=== PATIENT | male | born 1950 | race Caucasian/White ===

== ENCOUNTER → 2022-06-18 | Outpatient (CLI) | payer BC, MEDICARE ==
[~2022-06-18] MED LIST: ALFU10TA3 PO; ATOR1TAB21 PO; CYCL-707 PO; DILT180C28 PO; ELIQ2.5T PO; FOLI1TAB11 PO; FURO40TA2 PO; GABA-283 PO; MORP-69 PO; PRED5TA PO
[2022-06-18 12:51] LABS: BASO % 0.3 % (0.0-1.0); EOS # 0.1 10^3/uL (0.0-0.5); EOS % 1.5 % (0.0-3.0); HEMATOCRIT 37.9 % (42.0-52.0); HEMOGLOBIN 12.2 g/dl (13.5-17.5); LYMPH # 0.4 10^3/uL (1.5-5.0); LYMPH % 5.8 % (24.0-44.0); MEAN CORPUSCULAR HEMOGLOBIN 29.6 pg (27.0-33.0); MEAN CORPUSCULAR HGB CONC 32.2 g/dl (32.0-36.5); MONO # 0.5 10^3/uL (0.0-0.8); MONO % 6.2 % (2.0-8.0); NEUTROPHILS # 6.4 10^3/uL (1.5-8.5); NEUTROPHILS % 85.5 % (36.0-66.0); PLATELET COUNT, AUTOMATED 224 10^3/uL (150-450); RED BLOOD COUNT 4.12 10^6/uL (4.30-6.10); WHITE BLOOD COUNT 7.5 10^3/uL (4.0-10.0)
[2022-06-18 14:14] LABS: ALBUMIN 3.4 G/DL (3.2-5.2); ALKALINE PHOSPHATASE 247 U/L (46-116); ALT/SGPT 17 U/L (7.0-40); AST/SGOT 14 U/L (<34); BILIRUBIN,TOTAL 0.9 MG/DL (0.3-1.2); BLOOD UREA NITROGEN 11 MG/DL (9-23); CALCIUM LEVEL 9.4 MG/DL (8.3-10.6); CARBON DIOXIDE LEVEL 27 MMOL/L (20-31); CHLORIDE LEVEL 98 MMOL/L (98-107); GLOMERULAR FILTRATION RATE > 60.0 (>49); GLUCOSE, FASTING 279 MG/DL (74-106); POTASSIUM SERUM 3.9 MMOL/L (3.5-5.1); PROSTATIC SPECIFIC AG MONITOR 0.97 NG/ML (< 4.00); SODIUM LEVEL 136 MMOL/L (136-145); TOTAL PROTEIN 6.4 G/DL (5.7-8.2)
== END ==
LOC: M ONCR 11:07
PROVIDERS: ATTEND General Practice
DX: C61 Malignant neoplasm of prostate (principal); C79.51 Secondary malignant neoplasm of bone; E11.9 Type 2 diabetes mellitus without complications; I10 Essential (primary) hypertension; Z57.8 Occupational exposure to other risk factors; Z77.090 Contact with and (suspected) exposure to asbestos; Z79.01 Long term (current) use of anticoagulants; Z79.52 Long term (current) use of systemic steroids; Z79.891 Long term (current) use of opiate analgesic; Z79.899 Other long term (current) drug therapy; Z80.3 Family history of malignant neoplasm of breast
CPT/HCPCS: 36415; 80053; 84153; 85025; G0463

== ENCOUNTER → 2022-07-24 | Outpatient (CLI) | payer BC, MEDICARE ==
[~2022-07-24] VITALS: Ht 177.8 cm; Wt 123.0 kg
[~2022-07-24] MED LIST changes: +XOFIGO(RADIUM-223 DICHLORIDE) 180UCI 6ML VL CHARGE IS PER UCI IV STA
[2022-07-24 10:25] VITALS: BP 134/81
[2022-07-24 11:59] LABS: BASO % 0.4 % (0.0-1.0); EOS # 0.2 10^3/uL (0.0-0.5); EOS % 2.2 % (0.0-3.0); HEMATOCRIT 38.2 % (42.0-52.0); HEMOGLOBIN 12.3 g/dl (13.5-17.5); LYMPH # 0.5 10^3/uL (1.5-5.0); LYMPH % 6.7 % (24.0-44.0); MEAN CORPUSCULAR HEMOGLOBIN 29.4 pg (27.0-33.0); MEAN CORPUSCULAR HGB CONC 32.2 g/dl (32.0-36.5); MEAN CORPUSCULAR VOLUME 91.2 fl (80.0-96.0); MONO # 0.6 10^3/uL (0.0-0.8); MONO % 8.4 % (2.0-8.0); NEUTROPHILS # 5.9 10^3/uL (1.5-8.5); NEUTROPHILS % 81.9 % (36.0-66.0); PLATELET COUNT, AUTOMATED 194 10^3/uL (150-450); RED BLOOD COUNT 4.19 10^6/uL (4.30-6.10); WHITE BLOOD COUNT 7.2 10^3/uL (4.0-10.0)
[2022-07-24 12:54] LABS: ALBUMIN 3.4 G/DL (3.2-5.2); ALKALINE PHOSPHATASE 246 U/L (46-116); ALT/SGPT 18 U/L (7.0-40); AST/SGOT 8 U/L (<34); BILIRUBIN,TOTAL 0.4 MG/DL (0.3-1.2); BLOOD UREA NITROGEN 15 MG/DL (9-23); CALCIUM LEVEL 8.6 MG/DL (8.3-10.6); CARBON DIOXIDE LEVEL 29 MMOL/L (20-31); CHLORIDE LEVEL 96 MMOL/L (98-107); CREATININE FOR GFR 0.68 MG/DL (0.70-1.30); GLOMERULAR FILTRATION RATE > 60.0 (>49); GLUCOSE, FASTING 428 MG/DL (74-106); POTASSIUM SERUM 3.4 MMOL/L (3.5-5.1); SODIUM LEVEL 137 MMOL/L (136-145); TOTAL PROTEIN 5.9 G/DL (5.7-8.2)
== END ==
LOC: M ONCR 09:50
PROVIDERS: ATTEND General Practice
DX: C61 Malignant neoplasm of prostate (principal); C79.51 Secondary malignant neoplasm of bone

== ENCOUNTER → 2022-08-21 | Outpatient (CLI) | payer BC, MEDICARE ==
[~2022-08-21] VITALS: Ht 177.8 cm; Wt 274.2 kg
[2022-08-21 09:58] VITALS: BP 170/92
== END ==
LOC: M ONCR 09:48
PROVIDERS: ATTEND General Practice
DX: C61 Malignant neoplasm of prostate (principal); C79.51 Secondary malignant neoplasm of bone; Z99.89 Dependence on other enabling machines and devices
CPT/HCPCS: 79101; 96402; G0463

== ENCOUNTER → 2022-09-18 | Outpatient (CLI) | payer BC, MEDICARE ==
[~2022-09-18] VITALS: Ht 175.3 cm; Wt 115.9 kg
[2022-09-18 11:49] VITALS: BP 121/82
== END ==
LOC: M ONCR 10:30
PROVIDERS: ATTEND General Practice
DX: C61 Malignant neoplasm of prostate (principal); C79.51 Secondary malignant neoplasm of bone
CPT/HCPCS: 79101; 96402; G0463

== ENCOUNTER → 2022-10-16 | Outpatient (CLI) | payer BC, MEDICARE ==
[~2022-10-16] VITALS: Ht 177.8 cm; Wt 119.6 kg
[2022-10-16 10:39] VITALS: BP 144/89; O2SAT 98
== END ==
LOC: M ONCR 10:07
PROVIDERS: ATTEND General Practice
DX: C61 Malignant neoplasm of prostate (principal); Z79.51 Long term (current) use of inhaled steroids
CPT/HCPCS: 79101; G0463

== ENCOUNTER → 2022-11-27 | Outpatient (CLI) | payer BC, MEDICARE ==
[~2022-11-27] MED LIST changes: -GABA-283 PO; +GABA-284 PO
== END ==
LOC: M ONCR 12:50
PROVIDERS: ATTEND General Practice
DX: C61 Malignant neoplasm of prostate (principal); C79.51 Secondary malignant neoplasm of bone; K59.00 Constipation, unspecified
CPT/HCPCS: 79101; G0463

== ENCOUNTER → 2023-01-01 | Outpatient (CLI) | payer MEDICARE, BC ==
[~2023-01-01] VITALS: Ht 177.8 cm; Wt 119.6 kg
[2023-01-01 10:59] LABS: BASO % 0.4 % (0.0-1.0); EOS # 0.2 10^3/uL (0.0-0.5); EOS % 3.8 % (0.0-3.0); HEMATOCRIT 38.6 % (42.0-52.0); HEMOGLOBIN 12.3 g/dl (13.5-17.5); LYMPH # 0.5 10^3/uL (1.5-5.0); LYMPH % 9.3 % (24.0-44.0); MEAN CORPUSCULAR HEMOGLOBIN 28.8 pg (27.0-33.0); MEAN CORPUSCULAR HGB CONC 31.9 g/dl (32.0-36.5); MEAN CORPUSCULAR VOLUME 90.4 fl (80.0-96.0); MONO # 0.7 10^3/uL (0.0-0.8); MONO % 12.3 % (2.0-8.0); NEUTROPHILS # 4.1 10^3/uL (1.5-8.5); NEUTROPHILS % 73.5 % (36.0-66.0); PLATELET COUNT, AUTOMATED 178 10^3/uL (150-450); RED BLOOD COUNT 4.27 10^6/uL (4.30-6.10); WHITE BLOOD COUNT 5.6 10^3/uL (4.0-10.0)
== END ==
LOC: M ONCR 10:26
PROVIDERS: ATTEND General Practice
DX: C61 Malignant neoplasm of prostate (principal); C79.51 Secondary malignant neoplasm of bone
CPT/HCPCS: 36415; 79101; 85025; A9606; G0463

== ENCOUNTER → 2023-04-09 | Outpatient (CLI) | payer BC, MEDICARE ==
[~2023-04-09] MED LIST changes: -XOFIGO(RADIUM-223 DICHLORIDE) 180UCI 6ML VL CHARGE IS PER UCI IV STA
== END ==
LOC: M ONCR 09:52
PROVIDERS: ATTEND General Practice
DX: C61 Malignant neoplasm of prostate (principal); C79.51 Secondary malignant neoplasm of bone; Z71.2 Person consulting for explanation of examination or test findings; Z77.021 Contact with and (suspected) exposure to benzene; Z77.090 Contact with and (suspected) exposure to asbestos; Z88.5 Allergy status to narcotic agent; Z79.01 Long term (current) use of anticoagulants; Z79.52 Long term (current) use of systemic steroids; Z79.891 Long term (current) use of opiate analgesic; Z79.899 Other long term (current) drug therapy; Z92.3 Personal history of irradiation

== ENCOUNTER → 2023-05-21 | Outpatient (CLI) | payer BC, MEDICARE ==
[~2023-05-21] VITALS: Ht 172.7 cm; Wt 121.0 kg
[2023-05-21 10:33] VITALS: BP 144/76; TEMP 97.9; O2SAT 94
[2023-05-21] MEDS: PLUVICTO (LU-177 VIPIVOTIDE TETRAXETAN) 27 MCI/ML VL (CHARGE IS PER MCI) IV STA (10:36)
== END ==
LOC: M ONCR 09:54
PROVIDERS: ATTEND General Practice
DX: C61 Malignant neoplasm of prostate (principal); C79.51 Secondary malignant neoplasm of bone

== ENCOUNTER → 2023-07-02 | Outpatient (CLI) | payer BC, MEDICARE ==
[2023-07-02] MEDS: PLUVICTO (LU-177 VIPIVOTIDE TETRAXETAN) 27 MCI/ML VL (CHARGE IS PER MCI) IV STA (10:53)
== END ==
LOC: M ONCR 09:48
PROVIDERS: ATTEND General Practice
DX: C61 Malignant neoplasm of prostate (principal); C79.51 Secondary malignant neoplasm of bone
CPT/HCPCS: 79101; G0463

== ENCOUNTER → 2023-08-13 | Outpatient (CLI) | payer BC, MEDICARE ==
[2023-08-13] MEDS: PLUVICTO (LU-177 VIPIVOTIDE TETRAXETAN) 27 MCI/ML VL (CHARGE IS PER MCI) IV STA (10:36)
== END ==
LOC: M ONCR 09:53
PROVIDERS: ATTEND General Practice
DX: C61 Malignant neoplasm of prostate (principal); C79.51 Secondary malignant neoplasm of bone
CPT/HCPCS: 79101; G0463

== ENCOUNTER → 2023-09-24 | Outpatient (CLI) | payer BC, MEDICARE ==
[2023-09-24] MEDS: PLUVICTO (LU-177 VIPIVOTIDE TETRAXETAN) 27 MCI/ML VL (CHARGE IS PER MCI) IV STA (10:20)
== END ==
LOC: M ONCR 09:40
PROVIDERS: ATTEND General Practice
DX: C61 Malignant neoplasm of prostate (principal); C79.51 Secondary malignant neoplasm of bone
CPT/HCPCS: 79101; G0463

== ENCOUNTER → 2023-11-05 | Outpatient (CLI) | payer BC, MEDICARE ==
[~2023-11-05] MED LIST changes: +ALFU10TA23 PO; -ALFU10TA3 PO; +PLUVICTO (LU-177 VIPIVOTIDE TETRAXETAN) 27 MCI/ML VL (CHARGE IS PER MCI) IV ONE
[2023-11-05] MEDS: PLUVICTO (LU-177 VIPIVOTIDE TETRAXETAN) 27 MCI/ML VL (CHARGE IS PER MCI) IV STA (11:38)
== END ==
LOC: M ONCR 11:10
PROVIDERS: ATTEND General Practice
DX: C61 Malignant neoplasm of prostate (principal); C79.51 Secondary malignant neoplasm of bone
CPT/HCPCS: 79101; G0463

== ENCOUNTER → 2023-12-17 | Outpatient (CLI) | payer BC, MEDICARE ==
[~2023-12-17] MED LIST changes: -PLUVICTO (LU-177 VIPIVOTIDE TETRAXETAN) 27 MCI/ML VL (CHARGE IS PER MCI) IV ONE
[2023-12-17] MEDS: PLUVICTO (LU-177 VIPIVOTIDE TETRAXETAN) 27 MCI/ML VL (CHARGE IS PER MCI) IV STA (10:52)
== END ==
LOC: M ONCR 09:52
PROVIDERS: ATTEND General Practice
DX: C61 Malignant neoplasm of prostate (principal); C79.51 Secondary malignant neoplasm of bone; Z92.3 Personal history of irradiation
CPT/HCPCS: 79101; G0463

== ENCOUNTER → 2024-03-29 | Outpatient (CLI) | payer BC, MEDICARE ==
[~2024-03-29] MED LIST changes: +BACTDSTA PO
== END ==
LOC: M ONCR 14:24
PROVIDERS: ATTEND General Practice
DX: C61 Malignant neoplasm of prostate (principal); C79.51 Secondary malignant neoplasm of bone; L03.116 Cellulitis of left lower limb; M25.552 Pain in left hip; M54.59 Other low back pain; D64.9 Anemia, unspecified; Z92.3 Personal history of irradiation; Z77.021 Contact with and (suspected) exposure to benzene; Z77.090 Contact with and (suspected) exposure to asbestos; Z88.5 Allergy status to narcotic agent; Z79.01 Long term (current) use of anticoagulants; Z79.899 Other long term (current) drug therapy; Z79.52 Long term (current) use of systemic steroids

== ENCOUNTER → 2024-07-15 | Outpatient (CLI) | payer BC, MEDICARE | LOC: M ONCR 14:57 | PROVIDERS: ATTEND General Practice | DX: C61 Malignant neoplasm of prostate (principal); C79.51 Secondary malignant neoplasm of bone; R97.21 Rising PSA following treatment for malignant neoplasm of prostate; Z77.021 Contact with and (suspected) exposure to benzene; Z77.090 Contact with and (suspected) exposure to asbestos; Z79.01 Long term (current) use of anticoagulants; Z79.4 Long term (current) use of insulin; Z79.899 Other long term (current) drug therapy; Z87.311 Personal history of (healed) other pathological fracture; Z88.5 Allergy status to narcotic agent; Z92.3 Personal history of irradiation ==